=== PATIENT | male | born 1975 | race Caucasian/White ===

== ENCOUNTER 2019-03-02 09:05 | Emergency (ER) | payer BC ==
[2019-03-02 09:18] VITALS: BP 166/117
--- NOTE | 2019-03-02 09:25 | PHYS DOC ---
Adult General Chief Complaint Chief Complaint: LOWER EXTREMITY SWELLING HPI HPI 43-year-old male presents with right lower extremity swelling. The swelling has been building for the last couple of weeks. It started out as a right posterior calf pain was annoying. The swelling seems to have gotten worse and it has progressed up his leg. He now has swelling up to about the mid thigh and it is painful all day. He has had a lot more sedentary duties lately as he is taking classes in the . He does not recall any direct trauma or injury. He denies fever or chills. He denies shortness of breath. Review of Systems Review of Systems Constitutional: Denies fever or chills [] Eyes: Denies change in visual acuity, redness, or eye pain [] HENT: Denies nasal congestion or sore throat [] Respiratory: Denies cough or shortness of breath [] Cardiovascular: No additional information not addressed in HPI [] GI: Denies abdominal pain, nausea, vomiting, bloody stools or diarrhea [] : Denies dysuria or hematuria [] Musculoskeletal: Right lower extremity swelling[] Integument: Denies rash or skin lesions [] Neurologic: Denies headache, focal weakness or sensory changes [] Endocrine: Denies polyuria or polydipsia [] All other systems were reviewed and found to be within normal limits, except as documented in this note. Allergies Allergies Allergies Coded Allergies Type Severity Reaction Last Updated Verified acetaminophen Allergy Unknown 03/02/19 Yes oxycodone Allergy Unknown 03/02/19 Yes Physical Exam Physical Exam Constitutional: Well developed, well nourished, no acute distress, non-toxic appearance. [] HENT: Normocephalic, atraumatic, bilateral external ears normal, oropharynx moist, no oral exudates, nose normal. [] Eyes: PERRLA, EOMI, conjunctiva normal, no discharge. [] Neck: Normal range of motion, no tenderness, supple, no stridor. [] Cardiovascular:Heart rate regular rhythm, no murmur [] Lungs & Thorax: Bilateral breath sounds clear to auscultation [] Abdomen: Bowel sounds normal, soft, no tenderness, no masses, no pulsatile masses. [] Skin: Warm, dry, no erythema, no rash. [] Back: No tenderness, no CVA tenderness. [] Extremities: Right lower extremity diameter greater than left, no obvious cellulitis.[] Neurologic: Alert and oriented X 3, normal motor function, normal sensory function, no focal deficits noted. [] Psychologic: Affect normal, judgement normal, mood normal. [] EKG EKG [] Radiology/Procedures Radiology/Procedures [] Impressions: Right lower extremity venous Doppler ultrasound History: Right leg pain and swelling. Comparison: None. Procedure: Color flow Doppler, Doppler spectral analysis, and 2D images are obtained with and without compression in the area of the common femoral vein, superficial femoral vein - femoral vein junction, main femoral vein (superficial femoral vein) and popliteal vein. Veins of the proximal calf are also imaged. Findings: There is normal color flow, augmentation, and compressibility of the right common femoral vein. There is occlusive thrombus of the superficial femoral vein and popliteal vein. There is noncompressibility and lack of color flow due to thrombus in the peroneal and posterior tibial veins. IMPRESSION: There is occlusive thrombus of the right superficial femoral vein, popliteal vein, and calf veins. Electronically signed by: Jam Victoria MD (03/02/2019 9:57 AM) [id number] DICTATED AND SIGNED BY: JAM VICTORIA MD DATE: 03/02/19 0957 CC: BRENDEN VARGAS DO; PCP,NO ~ Course & Med Decision Making Course & Med Decision Making Pertinent Labs and Imaging studies reviewed. (See chart for details) Patient has a large DVT in the right leg. After a long discussion with the patient, his insurance company, and his decided to place him on Eliquis. I will also discharge him with [place] or his pain. The patient's condition worsens in any way, he will return to the emergency room. He is stable for discharge at this time. [] Dragon Disclaimer Dragon Disclaimer This electronic medical record was generated, in whole or in part, using a voice recognition dictation system. Departure Departure: Impression: Primary Impression: DVT (deep venous thrombosis) Disposition: HOME, SELF-CARE Condition: STABLE Referrals: PCPDARIEN (PCP) Patient Instructions: Deep Vein Thrombosis Scripts Apixaban (ELIQUIS) 5 Mg Tablet 5 MG PO BID for DVT, #60 TAB 10mg BID for 7 days, then 5mg BID Prov: BRENDEN VARGAS DO 03/02/19 Hydrocodone Bit/Acetaminophen (NORCO 5-325 TABLET) 1 Each Tablet 1 TAB PO PRN Q6HRS PRN for PAIN, #20 TAB 0 Refills Prov: BRENDEN VARGAS DO 03/02/19 Problem Qualifiers Primary Impression: DVT (deep venous thrombosis) DVT location: lower extremity Affected thrombotic vein of extremity: femoral Chronicity: acute Laterality: right Qualified Codes: I82.411 - Acute embolism and thrombosis of right femoral vein BRENDEN VARGAS DO Mar 02, 2019 09:25
[2019-03-02 09:42] LABS: BASO # 0.1 x10^3/uL (0.0-0.2); BASO % 1 % (0-3); EOS # 0.5 x10^3/uL (0.0-0.7); EOS % 5 % (0-3); HEMOGLOBIN 14.9 g/dL (13.0-17.5); LYMPH # 1.6 x10^3/uL (1.0-4.8); LYMPH % 18 % (24-48); MEAN CORPUSCULAR HEMOGLOBIN 30 pg (25-35); MEAN CORPUSCULAR HGB CONC 33 g/dL (31-37); MEAN CORPUSCULAR VOLUME 91 fL (79-100); MONO # 0.6 x10^3/uL (0.0-1.1); MONO % 7 % (0-9); NEUT % 69 % (31-73); PLATELET COUNT 182 x10^3/uL (140-400); RED BLOOD COUNT 4.97 x10^6/uL (4.30-5.70); RED CELL DISTRIBUTION WIDTH 12.9 % (11.5-14.5); WHITE BLOOD COUNT 8.6 x10^3/uL (4.0-11.0)
[2019-03-02 09:49] LABS: CALCIUM 8.9 mg/dL (8.5-10.1); CREATININE 1.1 mg/dL (0.7-1.3); GFR 72.4; POTASSIUM 4.1 mmol/L (3.5-5.1)
[2019-03-02 09:55] LABS: ALBUMIN 3.8 g/dL (3.4-5.0); ALBUMIN/GLOBULIN RATIO 0.9 (1.0-1.7); TOTAL BILIRUBIN 0.5 mg/dL (0.2-1.0)
--- NOTE | 2019-03-02 10:00 | RAD ---
Right lower extremity venous Doppler ultrasound History: Right leg pain and swelling. Comparison: None. Procedure: Color flow Doppler, Doppler spectral analysis, and 2D images are obtained with and without compression in the area of the common femoral vein, superficial femoral vein - femoral vein junction, main femoral vein (superficial femoral vein) and popliteal vein. Veins of the proximal calf are also imaged. Findings: There is normal color flow, augmentation, and compressibility of the right common femoral vein. There is occlusive thrombus of the superficial femoral vein and popliteal vein. There is noncompressibility and lack of color flow due to thrombus in the peroneal and posterior tibial veins. IMPRESSION: There is occlusive thrombus of the right superficial femoral vein, popliteal vein, and calf veins. Electronically signed by: Jam Melgoza MD (03/02/2019 9:57 AM) [id number]
[2019-03-02] MEDS ORDERED: APIX5TAB3 PO (12:23)
[2019-03-02] MEDS ORDERED: HYDR-3165 PO ×2 (12:23→12:30)
== END 2019-03-02 12:30 | disposition home or self-care (01) ==
LOC: ER 09:05
DX: I82.411 Acute embolism and thrombosis of right femoral vein (principal); Z88.5 Allergy status to narcotic agent; Z88.6 Allergy status to analgesic agent
CPT/HCPCS: 36415; 80053; 85025; 85610; 85730; 93971; 99285